=== PATIENT | female | born 1965 | race Caucasian/White ===

== ENCOUNTER → 2019-04-10 | Day surgery (SDC) | payer BC ==
[~2019-04-10] MED LIST: Acetaminophen TAB* 325 MG ONE; Acetaminophen TAB* 325 MG PO ONE; Buffered Lidocaine 1% SYRIN* 1 ML/SYRINGE INTRADERM ONE; Bupivacaine 0.5%* 50 ML MDV VIAL ONE; HYDROmorphone INJ1* 1 MG/ML SYRINGE IV PRN; Lactated Ringers 1000 ML Bag* 1,000 ML IV SCH; Lidocaine 2% PF* 10 ML AMP ONE; Midazolam* 1 MG/ML 2 ML VIAL (2 MG) ONE; Naloxone* 0.4 MG/ML 1 ML VIAL IV PRN; Ondansetron INJ* 2 MG/ML VIAL IV PRN; PROCHLORPERAZINE INJ 5 MG/ML 2 ML VIAL IV PRN; Propofol* 10 MG/ML 20 ML BTL ONE; Propofol* 500 MG/50 ML BTL ONE; ceFAZolin 2 GM in NS PREMIX(*) 2 GM/100 ML BAG IVPB ONE; oxyCODONE TAB* 5 MG TAB PO PRN
--- NOTE | 2019-04-10 14:42 | OP ---
Operative Report - Blank - Operative Report Date of Operation: 04/10/19 Note: PATIENT: [place] Nieves DATE OF : 1965 DATE OF SURGERY: 04/10/2019 SURGEON: David Nair MD GAS ENGINEER: TOMMY Santos, whos assistance was necessary for positioning, retraction, help with instrumentation, and closure. ANESTHESIOLOGIST: Dr. Mcallister PREOPERATIVE DIAGNOSIS: Right foot hallux rigidus POSTOPERATIVE DIAGNOSIS: Right foot hallux rigidus OPERATION: Right foot first metatarsophalangeal joint cheilectomy and first metatarsal head microfracture. ANESTHESIA: MAC IMPLANTS: none TOURNIQUET TIME: Less than 1 hour with an ankle Esmarch tourniquet SPECIMENS: None ESTIMATED BLOOD LOSS: Minimal COMPLICATIONS: none STATUS: Stable from the operating room to the recovery room and then home. INDICATIONS FOR PROCEDURE: [place] has had persistent pain and limited motion at her right 1st MTP joint. Both operative and non-operative treatment alternatives were reviewed. Further, the nature and risks of surgery were reviewed in careful detail, in the office as well as the pre-operative holding area. Our discussions regarding the risks of surgery included, but were not limited to, infection, wound problems, nerve injury, neuroma, RSD, persistent symptoms, blood clot, fracture, need for further surgery, failure of the surgery, and even the remote chance of catastrophic complication. DESCRIPTION OF PROCEDURE: The patient was seen in the preoperative holding unit and informed written consent was obtained. The appropriate extremity was marked. The patient was then brought to the operating room and carefully positioned on the operating room table. Anesthesia was induced. All bony prominences were padded with great care. A chlorhexidine based pre-scrub was performed followed by a chloraprep prep and drape in standard sterile fashion. A surgical safety pause was then conducted in which we confirmed the appropriate patient, extremity, planned procedure, availability of equipment, indication and administration of prophylactic antibiotics, and DVT prophylaxis in the form of a compression boot on the non-surgical extremity. I began with an Esmarch exsanguination of the limb and placement of an ankle Esmarch tourniquet. I then made an approximately 4 cm incision overlying the first metatarsophalangeal joint dorsally. We mobilized the extensor hallucis longus tendon laterally and then came sharply through the dorsal capsule in line with the skin incision. We then exposed the metatarsal head, with care taken to protect the collateral ligaments. Inflamed synovium was excised with a 15 blade scalpel. There was a large loose body at the dorsal joint. There were couple of smaller loose bodies as well. These were all excised. I utilized an osteotome to remove approximately 20% of the dorsal first metatarsal head and in line with the first metatarsal shaft, removing the dorsal spur. This was contoured at the medial and lateral aspects of the osteotomy in order to prevent any sharp bony prominences. I then excised the dorsal aspect of the proximal phalanx at the joint with a rongeur. There were no spurs left or inflamed invaginating synovium. There was a small bare area still present on the metatarsal head, so I used a 0.045 K wire to microfracture this area. There was much improved range of motion, especially with dorsiflexion. The wounds were copiously irrigated and meticulously closed in layers utilizing 3-0 Monocryl for the periosteum and dermal layer and 3-0 nylon for the skin. A sterile dressing was then applied. The patient was then awakened from anesthesia and transferred to the recovery room in stable condition. There were no complications. All needle and sponge counts were correct at the end of the case. ATTESTATION: I attest I was present and scrubbed and performed the critical portions of the procedure myself. POSTOPERATIVE PLAN: The patient will remain heel weightbearing for anticipated duration of 2 weeks. Followup will be in 2 weeks for likely suture removal and Steri-Strip application.
[2019-04-10 14:57] VITALS: BP 145/86
== END | disposition home or self-care (01) ==
LOC: OR 10:13
PROVIDERS: ATTEND Orthopaedic Surgery
DX: M20.21 Hallux rigidus, right foot (principal); J30.2 Other seasonal allergic rhinitis
CPT/HCPCS: A9270-GY; J0690; J2001; J2250; J2704; J3490